=== PATIENT | male | born 1990 | race Caucasian/White ===

== ENCOUNTER 2018-04-13 19:40 | Emergency (ER) | payer OTHER ==
--- NOTE | 2018-04-13 20:02 | EDPHY ---
H & P Stated Complaint: fell down 5-6 stairs left elbow, hip, and knee pain Time Seen by Provider: 04/13/18 19:57 HPI/ROS: CHIEF COMPLAINT: Fall down stairs HISTORY OF PRESENT ILLNESS: 27-year-old male healthy works at [employer], was caring table clots, slipped on the stairs and slid down 5-6 stairs on his buttock. This occurred shortly prior to arrival. Complaining of left hand pain, left elbow pain, left hip and buttock pain left knee pain. Antalgic gait although he is able to bear weight albeit with pain. This is a mechanical non syncopal episode. Denies alcohol use. Denies head injury. Denies midline C- spine pain or injury. Denies lumbar thoracic pain or injury. Denies sacral pain or injury. Denies nausea or vomiting. Denies headache. PRIMARY CARE PROVIDER: Worker's compensation REVIEW OF SYSTEMS: A ten point review of systems was performed and is negative with the exception of the items mentioned in the HPI PAST MEDICAL/SURGICAL HISTORY: no anticoagulant use, no relevant medical/ surgical history SOCIAL HISTORY: denies alcohol use at time of incident PHYSICAL EXAM 1) GENERAL: Well-developed, well-nourished, alert and oriented. Observed ambulating with antalgic gait. Answering questions appropriately. 2) HEAD: Normocephalic, atraumatic 3) HEENT: Pupils equal, round, reactive to light bilaterally. Negative Horners. Nasopharynx, oropharynx, clear. No deformity or angulation of nose. No septal hematoma. No rhinorrhea. No oral trauma. Ears bilaterally with normal tympanic membranes. No hemotympanum. No fluid or blood in the external auditory canal. No raccoon eyes. No Leavitt sign. Teeth are normally aligned with no gross malocclusion, TMJ bilaterally nontender, facial bones nontender including the zygomatic arch, maxilla mandible. 4) NECK: No cervical collar is on. Posterior cervical spine is nontender, no stepoff, no effusion. Full range of motion which does not elicit any midline cervical spine pain, no posterior midline tenderness, no step-off. 5) LUNGS: Clear to auscultation bilaterally, no wheezes, no rhonchi, no retractions. No obvious signs of trauma. No chest wall pain. No flaring, no grunting. Moving symmetrically. No crepitus. 6) HEART: [Regular rate and rhythm, 7) ABDOMEN: No guarding, no rebound, no focal tenderness, no peritoneal signs, no signs of trauma, no ecchymosis 8) MUSCULOSKELETAL: Left upper extremity: Abrasion and pain to the dorsal left elbow with reproducible pain with palpation range of motion. No radial head pain. Abrasion and tenderness to palpation dorsal left hand at the base of the 3rd metacarpal. Wrist nontender. Remainder left upper extremity nontender. Soft compartments. Left lower extremity: No visible trauma, tender to palpation left buttock region. No shortening no malrotation. Tender to palpation left anterior knee with mild erythema noted. No gross instability. Otherwise no tenderness. Soft compartments. Otherwise, Moving all extremities, no focal areas of tenderness, no obvious trauma. 9) BACK: No midline vertebral tenderness, no fluctuance, no step-off, no obvious trauma, no visual or palpable abnormality. 10) SKIN: No laceration. DIFFERENTIAL DIAGNOSIS: In no particular order include but limited to fracture , sprain, strain, dislocation - Personal History Current Tetanus/Diphtheria Vaccine: Yes Current Tetanus Diphtheria and Acellular Pertussis (TDAP): Yes - Medical/Surgical History Hx Asthma: No Hx Chronic Respiratory Disease: No Hx Diabetes: No Hx Cardiac Disease: No Hx Renal Disease: No Hx Cirrhosis: No Hx Alcoholism: No Hx HIV/AIDS: No Hx Splenectomy or Spleen Trauma: No Other PMH: hernia - Social History Smoking Status: Never smoked Constitutional: Initial Vital Signs Temperature (C) 36.9 C 04/13/18 19:47 Heart Rate 73 04/13/18 19:47 Respiratory Rate 16 04/13/18 19:47 Blood Pressure 125/78 H 04/13/18 19:47 O2 Sat (%) 98 04/13/18 19:47 O2 Delivery Mode Room Air Allergies/Adverse Reactions: No Known Allergies Allergy (Unverified 04/13/18 19:49) Home Medications: Medication Instructions Recorded NK [No Known Home Meds] 04/13/18 Medical Decision Making - Diagnostics Imaging Results: Imaging Impressions Elbow X-Ray 04/13/18 20:02 Impression: No definite fracture or joint effusion of the left elbow. Hand X-Ray 04/13/18 20:02 Impression: 1. No definite acute fracture. 2. Consider additional imaging if symptoms persist, if clinically indicated. Hip X-Ray 04/13/18 20:02 Impression: 1. No evidence of left hip fracture or dislocation. 2. No significant degenerative changes. 3. Consider additional imaging with CT or MRI, if clinically indicated Knee X-Ray 04/13/18 20:02 Impression: No definite fracture or joint effusion of the left knee. Images reviewed myself Imaging: I viewed and interpreted images myself Procedures: Procedure: Splint A sling was applied by ER registered veterinary technician. After application of the splint I returned and re-examined the patient. The splint was adequately immobilizing the joint and distal to the splint the patient's circulation and sensation were intact. Patient shows no signs of compartment syndrome. Was given orthopedic precautions. ED Course/Re-evaluation: Care of patient under supervision of secondary supervising physician Dr Hamm . Re-evaluation with serial examinations. Discussed his imaging results showing no definitive acute osseous abnormality. He is neurovascularly intact with no evidence of compartment syndrome. Recommend close follow-up with orthopedics and work comp provider. Usual and customary orthopedic precautions and instructions provided. Departure - Departure Disposition: Home, Routine, Self-Care Clinical Impression: Left buttock pain Sprain of left hand Qualifiers: Encounter type: initial encounter Qualified Code(s): S63.92XA - Sprain of unspecified part of left wrist and hand, initial encounter Sprain of left elbow Qualifiers: Encounter type: initial encounter Qualified Code(s): S53.402A - Unspecified sprain of left elbow, initial encounter Fall down stairs Qualifiers: Encounter type: initial encounter Qualified Code(s): W10.8XXA - Fall (on) (from ) other stairs and steps, initial encounter Left knee sprain Qualifiers: Encounter type: initial encounter Involved ligament of knee: unspecified ligament Qualified Code(s): S83.92XA - Sprain of unspecified site of left knee, initial encounter Condition: Good Instructions: Knee Sprain (ED), Elbow Sprain (ED), Hand Sprain (ED) Additional Instructions: Return to the ER immediately if you experience discoloration, have worsening pain, numbness, tingling, or any other symptoms that concern you. If you received x-rays in the emergency department today, be advised, that ligamentous , tendon, muscular, and other non-bony injury cannot be fully ruled out. Try to keep your affected extremity elevated above the level of your chest, and keep cold packs on the affected area, for the next 48 hours. Referrals: Efrain Young MD [Medical Doctor] - As per Instructions Stand Alone Forms: Work Comp Follow Up
[2018-04-13 20:45] VITALS: BP 137/82
== END 2018-04-13 20:44 | disposition home or self-care (01) ==
DX: S63.92XA Sprain of unspecified part of left wrist and hand, initial encounter (principal); S53.402A Unspecified sprain of left elbow, initial encounter; S83.92XA Sprain of unspecified site of left knee, initial encounter; S39.92XA Unspecified injury of lower back, initial encounter; W10.9XXA Fall (on) (from) unspecified stairs and steps, initial encounter; Y92.511 Restaurant or cafe as the place of occurrence of the external cause; Y99.0 Civilian activity done for income or pay; Y93.89 Activity, other specified
CPT/HCPCS: A4565

== ENCOUNTER 2018-06-07 20:18 | Inpatient (IN) | payer OTHER ==
[2018-06-07] MEDS ORDERED: NS 1,000 ML IV ONE ×2 (21:06→21:18)
--- NOTE | 2018-06-07 21:10 | EDPHY ---
H & P Stated Complaint: Blood in Urine, Back Pain Time Seen by Provider: 06/07/18 21:10 HPI/ROS: HPI CHIEF COMPLAINT: Dysuria, hematuria, low-grade fever HISTORY OF PRESENT ILLNESS: 27-year-old male, presents emergency room with dysuria and hematuria. He states since Friday when he developed fever like illness he thought maybe he had upper respiratory/sinus infection. However he noticed some lower back pain dysuria and some hematuria. Decided come the emergency room for evaluation of this. Upon arrival to the emergency room he is afebrile. Nontoxic appearing. Main complaint dysuria. He denies any testicular pain, high flank pain, vomiting, high fever. He did not take his temperature at home. Denies productive cough, chest pain, abdominal pain. No diarrhea. Main complaint dysuria, hematuria, low-grade fever, low back pain. Denies STI exposure. Past Medical History: Denies medical history Past Surgical History: Denies surgical history Social History: Denies drugs alcohol tobacco. Family History: Noncontributory ROS REVIEW OF SYSTEMS: A comprehensive 10 point review of systems is otherwise negative aside from elements mentioned in the history of present illness. Exam Constitutional appears well nontoxic no acute distress, vital signs stable triage, triage nursing summary reviewed, vital signs reviewed, awake/alert. Eyes normal conjunctivae and sclera, EOMI, PERRLA. HENT normal inspection, atraumatic, moist mucus membranes, no epistaxis, neck supple/ no meningismus, no raccoon eyes. Respiratory clear to auscultation bilaterally, normal breath sounds, no respiratory distress, no wheezing. Cardiovascular rate normal, regular rhythm, no murmur, no edema, distal pulses normal. Gastrointestinal soft, non-tender, no rebound, no guarding, normal bowel sounds, no distension, no pulsatile mass. Genitourinary no CVA tenderness. Musculoskeletal no midline vertebral tenderness, full range of motion, no calf swelling, no tenderness of extremities, no meningismus, good pulses, neurovascularly intact. Skin pink, warm, & dry, no rash, skin atraumatic. Neurologic awake, alert and oriented x 3, AAOx3, moves all 4 extremities equally, motor intact, sensory intact, CN II-XII intact, normal cerebellar, normal vision, normal speech. Psychiatric normal mood/affect. Heme/Lymph/Immune no lymphadenopathy. Differential Diagnosis: Includes but is not limited to in a particular order, UTI, cystitis, pyelonephritis, proctitis, prostatitis, sepsis, bacteremia Medical Decision Making: Plan for this patient given complain of dysuria, hematuria, low back pain, low-grade fever will check basic blood work, IV hydration, check urinalysis. If urinalysis indicates UTI will treat with 1 g of Rocephin here in emergency room, urine culture, and re-evaluate. Re-evaluation: 2217: CT scan abdomen pelvis with IV contrast shows pyelonephritis. Patient here in emergency room is hemodynamically stable. I have ordered him IV Rocephin. 2 L of fluid. His elevated white count 21032. Lactic acid is not elevated. CT scan shows pyelo. Plan for admission hospital service overnight for observation for pyelonephritis. Spoke with Dr. Abdalla, agrees to admit the patient for pyelonephritis. Source: Patient - Personal History Current Tetanus Diphtheria and Acellular Pertussis (TDAP): Yes - Medical/Surgical History Hx Asthma: No Hx Chronic Respiratory Disease: No Hx Diabetes: No Hx Cardiac Disease: No Hx Renal Disease: No Hx Cirrhosis: No Hx Alcoholism: No Hx HIV/AIDS: No Hx Splenectomy or Spleen Trauma: No Other PMH: hernia - Social History Smoking Status: Never smoked Constitutional: Initial Vital Signs Temperature (C) 36.6 C 06/07/18 20:19 Heart Rate 77 06/07/18 20:19 Respiratory Rate 16 06/07/18 20:19 Blood Pressure 125/80 H 06/07/18 20:19 O2 Sat (%) 98 06/07/18 20:19 O2 Delivery Mode Room Air Allergies/Adverse Reactions: No Known Allergies Allergy (Unverified 04/13/18 19:49) Home Medications: Medication Instructions Recorded NK [No Known Home Meds] 04/13/18 Medical Decision Making - Data Points Laboratory Results: Laboratory Results 06/07/18 21:00 06/07/18 21:00 06/07/18 06/07/18 06/07/18 21:26 21:00 21:00 WBC 20.31 10^3/uL H 10^3/uL (3.80-9.50) RBC 4.69 10^6/uL 10^6/uL (4.40-6.38) Hgb 14.9 g/dL g/dL (13.7-17.5) Hct 43.8 % % (40.0-51.0) MCV 93.4 fL fL (81.5-99.8) MCH 31.8 pg pg (27.9-34.1) MCHC 34.0 g/dL g/dL (32.4-36.7) RDW 12.7 % % (11.5-15.2) Plt Count 190 10^3/uL 10^3/uL (150-400) MPV 11.5 fL fL (8.7-11.7) Neut % (Auto) Not Reported Lymph % (Auto) Not Reported Braxton % (Auto) Not Reported Eos % (Auto) Not Reported Baso % (Auto) Not Reported Nucleat RBC Rel Count Not Reported Absolute Neuts (auto) Not Reported Absolute Lymphs (auto) Not Reported Absolute Monos (auto) Not Reported Absolute Eos (auto) Not Reported Absolute Basos (auto) Not Reported Absolute Nucleated RBC Not Reported Immature Gran % Not Reported Seg Neutrophils % 81.0 % % Band Neutrophils % 0 % % Lymphocytes % 10.0 % % Monocytes % 9.0 % % Eosinophils % 0 % % Basophils % 0 % % Metamyelocytes % 0 % % Myelocytes % 0 % % Promyelocytes % 0 % % Blast Cells % 0 % % Immature Gran # Not Reported Absolute Seg Neuts 16.45 10^/uL H 10^/uL (1.70-6.50) Absolute Band Neuts 0.00 10^3/uL 10^3/uL (0.00-0.70) Absolute Lymphocytes 2.03 10^3/uL 10^3/uL (1.00-3.00) Absolute Monocytes 1.83 10^3/uL H 10^3/uL (0.30-0.80) Absolute Eosinophils 0.00 10^3/uL L 10^3/uL (0.03-0.40) Absolute Basophils 0.00 10^3/uL L 10^3/uL (0.02-0.10) Absolute Metamyelocyte 0.00 10^3/mL 10^3/mL (0.00-0.00) Absolute Myelocytes 0.00 10^3/mL 10^3/mL (0.00-0.00) Absolute Promyelocytes 0.00 10^3/uL 10^3/uL (0.00-0.00) Absolute Plasma Cells 0.00 10^3/uL 10^3/uL (0.00-0.00) Nucleated RBCs 0 /100 WBC /100 WBC (0-0) Absolute Blast Cells 0.00 10^3/uL 10^3/uL (0.00-0.00) Plasma Cells % 0 % % Platelet Estimate ADEQUATE (ADEQ) Polychromasia 1+ H Smear Review By Pending VBG Lactic Acid 1.0 mmol/L mmol/L (0.7-2.1) Sodium 140 mEq/L mEq/L (135-145) Potassium 4.0 mEq/L mEq/L (3.3-5.0) Chloride 103 mEq/L mEq/L (97-110) Carbon Dioxide 30 mEq/l mEq/l (22-31) Anion Gap 7 mEq/L L mEq/L (8-16) BUN 15 mg/dL mg/dL (7-23) Creatinine 0.7 mg/dL mg/dL (0.7-1.3) Estimated GFR > 60 Glucose 104 mg/dL H mg/dL (70-100) Calcium 9.5 mg/dL mg/dL (8.5-10.4) Urine Color Urine Appearance Urine pH Ur Specific Java Urine Protein Urine Ketones Urine Blood Urine Nitrate Urine Bilirubin Urine Urobilinogen Ur Leukocyte Esterase Urine RBC Urine WBC Ur Epithelial Cells Urine Bacteria Urine Mucus Urine Glucose Urine Opiates Screen Urine Barbiturates Ur Phencyclidine Scrn Ur Amphetamine Screen U Benzodiazepines Scrn Urine Cocaine Screen U Marijuana (THC) Screen 06/07/18 06/07/18 20:35 20:35 WBC RBC Hgb Hct MCV MCH MCHC RDW Plt Count MPV Neut % (Auto) Lymph % (Auto) Braxton % (Auto) Eos % (Auto) Baso % (Auto) Nucleat RBC Rel Count Absolute Neuts (auto) Absolute Lymphs (auto) Absolute Monos (auto) Absolute Eos (auto) Absolute Basos (auto) Absolute Nucleated RBC Immature Gran % Seg Neutrophils % Band Neutrophils % Lymphocytes % Monocytes % Eosinophils % Basophils % Metamyelocytes % Myelocytes % Promyelocytes % Blast Cells % Immature Gran # Absolute Seg Neuts Absolute Band Neuts Absolute Lymphocytes Absolute Monocytes Absolute Eosinophils Absolute Basophils Absolute Metamyelocyte Absolute Myelocytes Absolute Promyelocytes Absolute Plasma Cells Nucleated RBCs Absolute Blast Cells Plasma Cells % Platelet Estimate Polychromasia Smear Review By VBG Lactic Acid Sodium Potassium Chloride Carbon Dioxide Anion Gap BUN Creatinine Estimated GFR Glucose Calcium Urine Color YELLOW Urine Appearance MODERATELY TURBID Urine pH 6.0 (5.0-7.5) Ur Specific Java 1.019 (1.002-1.030) Urine Protein NEGATIVE (NEGATIVE) Urine Ketones NEGATIVE (NEGATIVE) Urine Blood 3+ H (NEGATIVE) Urine Nitrate NEGATIVE (NEGATIVE) Urine Bilirubin NEGATIVE (NEGATIVE) Urine Urobilinogen 4.0 EU H EU (0.2-1.0) Ur Leukocyte Esterase 3+ H (NEGATIVE) Urine RBC 50-182 /hpf H /hpf (0-3) Urine WBC 50-182 /hpf H /hpf (0-3) Ur Epithelial Cells NONE SEEN /lpf /lpf (NONE-1+) Urine Bacteria 4+ /hpf H /hpf (NONE SEEN) Urine Mucus TRACE /lpf /lpf (NONE-1+) Urine Glucose NEGATIVE (NEGATIVE) Urine Opiates Screen NEGATIVE (NEGATIVE) Urine Barbiturates NEGATIVE (NEGATIVE) Ur Phencyclidine Scrn NEGATIVE (NEGATIVE) Ur Amphetamine Screen NEGATIVE (NEGATIVE) U Benzodiazepines Scrn NEGATIVE (NEGATIVE) Urine Cocaine Screen NEGATIVE (NEGATIVE) U Marijuana (THC) Screen NON-NEGATIVE H (NEGATIVE) Medications Given: Discontinued Medications Sodium Chloride (Ns) 1,000 mls @ 0 mls/hr IV ONCE ONE; Wide Open PRN Reason: Protocol Stop: 06/07/18 21:07 Last Admin: 06/07/18 21:07 Dose: 1,000 mls Ceftriaxone Sodium/Dextrose (Rocephin 1 Gm (Premix)) 50 mls @ 100 mls/hr IV EDNOW ONE PRN Reason: Protocol Stop: 06/07/18 21:43 Last Admin: 06/07/18 21:24 Dose: 50 mls Sodium Chloride (Ns) 1,000 mls @ 0 mls/hr IV ONCE ONE PRN Reason: Wide Open Stop: 06/07/18 21:19 Last Admin: 06/07/18 21:25 Dose: 1,000 mls Departure - Departure Disposition: Home, Routine, Self-Care Clinical Impression: Pyelonephritis UTI (urinary tract infection) Qualifiers: Urinary tract infection type: acute cystitis Hematuria presence: with hematuria Qualified Code(s): N30.01 - Acute cystitis with hematuria Condition: Good Instructions: Urinary Tract Infection in Women (ED) Referrals: NONE *PRIMARY CARE P,. [Primary Care Provider] - As per Instructions
[2018-06-07 21:15] LABS: PLATELET COUNT 190 10^3/uL (150-400)
[2018-06-07] MEDS ORDERED: IOPAMIDOL (ISOVUE-300) 100 ML BTL ONE (21:24)
[2018-06-07] MEDS ORDERED: ONDANSETRON DISINTEGRATING 4 MG TAB PO PRN (23:06)
[2018-06-07] MEDS ORDERED: ONDANSETRON 4 MG/2 ML VIAL IVP PRN (23:06)
[2018-06-07] MEDS ORDERED: ACETAMINOPHEN 325 MG TAB PO PRN (23:06)
--- NOTE | 2018-06-08 02:45 | PDGENHP ---
History and Physical - Chief Complaint Hematuria - History of Present Illness 27 yo M w/ hx of depression presents with hematuria. He tells me he started to feel poorly 2 days prior to admission, mostly with fatigue and headache. Then, on the day of admission, he began to experience dysuria, bilateral flank pain, and hematuria. He denies fever and chills. He came in to the ED for evaluation where a UA revealed a urinary tract infection. He denies any prior history of urinary tract infections. He does get yearly sinus infections. He denies any form of immunodeficiency. He does tell me he has sex with other males but has not been sexually active the last few years. He has never been screened for STI' s. Of note, he has lost about 30 lbs in the last 9 months since moving to [place]. He states he cannot keep weight on despite eating what he thinks is a normal diet. Once admitted a depression screening was found to be positive. Upon further discussion he tells me he has been dealing with severe depression for several years. He was previously tried SSRI's and TCAs without good effect. He denies SI currently, but admits that he has had suicidal ideation recently, including a plan 2 weeks ago to step in front of traffic. He did not go through with this plan but is clearly decompensated from a depression standpoint. History Information - Allergies/Home Medication List Allergies/Adverse Reactions: No Known Allergies Allergy (Unverified 04/13/18 19:49) Home Medications: NK [No Known Home Meds] 04/13/18 [Last Taken Unknown] I have personally reviewed and updated: family history, medical history - Past Medical History Additional medical history: Depression - Surgical History Reports: no pertinent surgical hx - Family History Additional family history: Denies family hx of immunodeficiency - Social History Smoking Status: Never smoked Review of Systems Review of Systems: ROS: 10pt was reviewed & negative except for what was stated in HPI & below Physical Exam Physical Exam: Temp Pulse Resp BP Pulse Ox 36.8 C 73 18 120/78 98 06/07/18 23:55 06/07/18 23:57 06/07/18 23:57 06/07/18 23:57 06/07/18 23:57 Constitutional: no apparent distress, not in pain Eyes: PERRL, EOMI Ears, Nose, Mouth, Throat: moist mucous membranes, no oral mucosal ulcers Cardiovascular: regular rate and rhythym, no murmur, rub, or gallop Respiratory: no respiratory distress, clear to auscultation Gastrointestinal: normoactive bowel sounds, soft, non-tender abdomen Genitourinary: no bladder fullness, other (+ b/l CVAT) Skin: warm, normal color Musculoskeletal: full muscle strength, no muscle tenderness Neurologic: AAOx3, CN II-XII Intact Psychiatric: interacting appropriately, depressed Lab Data & Imaging Review 06/07/18 21:00 06/07/18 21:00 WBC 20.31 10^3/uL (3.80-9.50) H 06/07/18 21:00 RBC 4.69 10^6/uL (4.40-6.38) 06/07/18 21:00 Hgb 14.9 g/dL (13.7-17.5) 06/07/18 21:00 Hct 43.8 % (40.0-51.0) 06/07/18 21:00 MCV 93.4 fL (81.5-99.8) 06/07/18 21:00 MCH 31.8 pg (27.9-34.1) 06/07/18 21:00 MCHC 34.0 g/dL (32.4-36.7) 06/07/18 21:00 RDW 12.7 % (11.5-15.2) 06/07/18 21:00 Plt Count 190 10^3/uL (150-400) 06/07/18 21:00 MPV 11.5 fL (8.7-11.7) 06/07/18 21:00 Neut % (Auto) Not Reported 06/07/18 21:00 Lymph % (Auto) Not Reported 06/07/18 21:00 [place] % (Auto) Not Reported 06/07/18 21:00 Eos % (Auto) Not Reported 06/07/18 21:00 Baso % (Auto) Not Reported 06/07/18 21:00 Nucleat RBC Rel Count Not Reported 06/07/18 21:00 Absolute Neuts (auto) Not Reported 06/07/18 21:00 Absolute Lymphs (auto) Not Reported 06/07/18 21:00 Absolute Monos (auto) Not Reported 06/07/18 21:00 Absolute Eos (auto) Not Reported 06/07/18 21:00 Absolute Basos (auto) Not Reported 06/07/18 21:00 Absolute Nucleated RBC Not Reported 06/07/18 21:00 Immature Gran % Not Reported 06/07/18 21:00 Seg Neutrophils % 81.0 % 06/07/18 21:00 Band Neutrophils % 0 % 06/07/18 21:00 Lymphocytes % 10.0 % 06/07/18 21:00 Monocytes % 9.0 % 06/07/18 21:00 Eosinophils % 0 % 06/07/18 21:00 Basophils % 0 % 06/07/18 21:00 Metamyelocytes % 0 % 06/07/18 21:00 Myelocytes % 0 % 06/07/18 21:00 Promyelocytes % 0 % 06/07/18 21:00 Blast Cells % 0 % 06/07/18 21:00 Immature Gran # Not Reported 06/07/18 21:00 Absolute Seg Neuts 16.45 10^/uL (1.70-6.50) H 06/07/18 21:00 Absolute Band Neuts 0.00 10^3/uL (0.00-0.70) 06/07/18 21:00 Absolute Lymphocytes 2.03 10^3/uL (1.00-3.00) 06/07/18 21:00 Absolute Monocytes 1.83 10^3/uL (0.30-0.80) H 06/07/18 21:00 Absolute Eosinophils 0.00 10^3/uL (0.03-0.40) L 06/07/18 21:00 Absolute Basophils 0.00 10^3/uL (0.02-0.10) L 06/07/18 21:00 Absolute Metamyelocyte 0.00 10^3/mL (0.00-0.00) 06/07/18 21:00 Absolute Myelocytes 0.00 10^3/mL (0.00-0.00) 06/07/18 21:00 Absolute Promyelocytes 0.00 10^3/uL (0.00-0.00) 06/07/18 21:00 Absolute Plasma Cells 0.00 10^3/uL (0.00-0.00) 06/07/18 21:00 Nucleated RBCs 0 /100 WBC (0-0) 06/07/18 21:00 Absolute Blast Cells 0.00 10^3/uL (0.00-0.00) 06/07/18 21:00 Plasma Cells % 0 % 06/07/18 21:00 Platelet Estimate ADEQUATE (ADEQ) 06/07/18 21:00 Polychromasia 1+ H 06/07/18 21:00 VBG Lactic Acid 1.0 mmol/L (0.7-2.1) 06/07/18 21:26 Sodium 140 mEq/L (135-145) 06/07/18 21:00 Potassium 4.0 mEq/L (3.3-5.0) 06/07/18 21:00 Chloride 103 mEq/L (97-110) 06/07/18 21:00 Carbon Dioxide 30 mEq/l (22-31) 06/07/18 21:00 Anion Gap 7 mEq/L (8-16) L 06/07/18 21:00 BUN 15 mg/dL (7-23) 06/07/18 21:00 Creatinine 0.7 mg/dL (0.7-1.3) 06/07/18 21:00 Estimated GFR > 60 06/07/18 21:00 Glucose 104 mg/dL (70-100) H 06/07/18 21:00 Calcium 9.5 mg/dL (8.5-10.4) 06/07/18 21:00 Urine Color YELLOW 06/07/18 20:35 Urine Appearance MODERATELY TURBID 06/07/18 20:35 Urine pH 6.0 (5.0-7.5) 06/07/18 20:35 Ur Specific Thompson 1.019 (1.002-1.030) 06/07/18 20:35 Urine Protein NEGATIVE (NEGATIVE) 06/07/18 20:35 Urine Ketones NEGATIVE (NEGATIVE) 06/07/18 20:35 Urine Blood 3+ (NEGATIVE) H 06/07/18 20:35 Urine Nitrate NEGATIVE (NEGATIVE) 06/07/18 20:35 Urine Bilirubin NEGATIVE (NEGATIVE) 06/07/18 20:35 Urine Urobilinogen 4.0 EU (0.2-1.0) H 06/07/18 20:35 Ur Leukocyte Esterase 3+ (NEGATIVE) H 06/07/18 20:35 Urine RBC 50-182 /hpf (0-3) H 06/07/18 20:35 Urine WBC 50-182 /hpf (0-3) H 06/07/18 20:35 Ur Epithelial Cells NONE SEEN /lpf (NONE-1+) 06/07/18 20:35 Urine Bacteria 4+ /hpf (NONE SEEN) H 06/07/18 20:35 Urine Mucus TRACE /lpf (NONE-1+) 06/07/18 20:35 Urine Glucose NEGATIVE (NEGATIVE) 06/07/18 20:35 Urine Opiates Screen NEGATIVE (NEGATIVE) 06/07/18 20:35 Urine Barbiturates NEGATIVE (NEGATIVE) 06/07/18 20:35 Ur Phencyclidine Scrn NEGATIVE (NEGATIVE) 06/07/18 20:35 Ur Amphetamine Screen NEGATIVE (NEGATIVE) 06/07/18 20:35 U Benzodiazepines Scrn NEGATIVE (NEGATIVE) 06/07/18 20:35 Urine Cocaine Screen NEGATIVE (NEGATIVE) 06/07/18 20:35 U Marijuana (THC) Screen NON-NEGATIVE (NEGATIVE) H 06/07/18 20:35 Assessment & Plan Assessment: 27 yo M w/ hx of depression presents with pyelonephritis. Plan: 1. Pyelonephritis - Pyelonephritis suspected based on urinary symptoms, bilateral flank pain, and significant WBC elevation. He is not exhibiting signs of sepsis physiology currently. He has no prior history of urinary tract infections and denies any form of immunodeficiency. - Admit for observation - CT to rule out complicating factors - Urine and blood cultures pending - CTX 1 g qD 2. Weight loss - Patient describes 30 lb weight loss over the last 9 months. Noting history of intercourse with males, STI's such as HIV are a possibility. Also, severe depression could be playing a role. - Will check HIV, Hep C 3. Depression - Hx of depression for several years with previous poor response to SSRI's and TCA's. He denies current suicidal ideation but has suffered from SI with a plan (step in front of traffic) as recently as 2 weeks ago. I discussed this at length with him tonight and he denies any imminent desire to harm himself. - TLC evaluation in the morning Diet - Regular Code - Full Ppx - Low risk, ambulate TID Dispo - Admit under observation status
[2018-06-08 05:29] LABS: PLATELET COUNT 179 10^3/uL (150-400)
[2018-06-08 06:55] LABS: HEPATITIS C ANTIBODY TOTAL NEGATIVE (NEGATIVE)
[2018-06-08] MEDS: MULTIVITAMINS 1 EACH TAB PO SCH (08:35)
--- NOTE | 2018-06-08 12:22 | HOSPPROG ---
Hospitalist Progress Note Assessment/Plan: 27 yo M w/ hx of depression presents with pyelonephritis. *Pyelonephritis - has ongoing flank pain, >left side, high wbc count - CT shows multifocal pyelonephritis - Urine and blood cultures pending - CTX initiated *Weight loss - Patient describes 30 lb weight loss over the last 9 months. - history of intercourse with males, STI's such as HIV are a possibility. Also, severe depression could be playing a role. - Hep C is negative - awaiting final result of HIV *Underweight w a BMI of 17 * Depression - Hx of depression for several years with previous poor response to SSRI's and TCA's. -He denies current suicidal ideation but has suffered from SI with a plan (step in front of traffic) as recently as 2 weeks ago. -TLC evaluation did not believe he was a harm to himself -concerned patient is so tearful during my evaluation, have asked Alejandra Gunn with to see him *Plan: patient is insured through [facility]. Spoke with the [facility] physician, Chantell Olguin ([phone]), ok to keep him here overnight until we get results of blood cultures and urine cultures. He hasn't made any appt w [facility] to get a PCP set up. Their general # is [phone]. I explained to the patient it is important for him to get close f/u. He needs to make an appt prior to dc. I have spend >40 minutes calling [facility], following up care with the patient. Also, wanted to check him for G & C, he said he has not been sexually active x 5 years. Subjective: Yovanny is tearful about staying in the hospital another midnight, says he didn't sleep well and the bed is uncomfortable. Objective: Vital Signs Temp Pulse Resp BP Pulse Ox 36.6 C 74 16 121/81 H 97 06/08/18 08:00 06/08/18 08:00 06/08/18 08:00 06/08/18 08:00 06/08/18 08:00 Laboratory Results 06/08/18 04:55 06/08/18 04:55 06/07/18 06/08/18 06/09/18 05:59 05:59 05:59 Intake Total 2700 450 Output Total 25 Balance 2700 425 - Physical Exam Constitutional: other (thin) Eyes: PERRL Ears, Nose, Mouth, Throat: hearing normal Cardiovascular: regular rate and rhythym Respiratory: no respiratory distress Gastrointestinal: normoactive bowel sounds, other (+flank pain on left side) Skin: warm, No normal color (pale) Musculoskeletal: no muscle tenderness Neurologic: AAOx3 Psychiatric: thought process linear, depressed ICD10 Worksheet Patient Problems: Problems Problem Status Onset Pyelonephritis Acute UTI (urinary tract infection) Acute
[2018-06-08] MEDS ORDERED: TEMAZEPAM 15 MG CAP PO PRN (13:08)
--- NOTE | 2018-06-08 13:50 | ASMTCMCOM ---
CM Note CM Note Notes: Pt in for pylonephritis, has history of depression. TLC eval note today indicates pt does not meet criteria for M1 hold. CM to provide pt mental health resources and pt ultimately has contact [facility] for contracted providers. No therapies ordered. Pt resides alone in apartment. CM to follow. Date Signed: 06/08/2018 01:49 PM Electronically Signed By:JACQUELIN Berumen
--- NOTE | 2018-06-08 15:45 | PDMN ---
Medical Necessity Medical necessity: M300 UTi- pyelonephritis- persistent ongoing flank pain elevated WBC, CT showing multifocal pyelonephritis, urine and blood cultures pending, pt with sig. wt loss over past 9 months, high risk pt., depression, req IV abx, further monitoring. status changed to INPT 06/08/18 @ 15:18
[2018-06-09 05:37] LABS: PLATELET COUNT 199 10^3/uL (150-400)
[2018-06-09 08:03] VITALS: BP 124/76
[2018-06-09] MEDS: MULTIVITAMINS 1 EACH TAB PO SCH (08:21)
--- NOTE | 2018-06-09 08:34 | HOSPPROG ---
Hospitalist Progress Note Assessment/Plan: 27 yo M w/ hx of depression presents with pyelonephritis. *Pyelonephritis -feeling much better - CT shows multifocal pyelonephritis - Urine cx shows e coli and blood cultures currently shows no growth - CTX initiated - dc home on 7 days of Levaquin *Weight loss - Patient describes 30 lb weight loss over the last 9 months. - history of intercourse with males, STI's such as HIV are a possibility. - Hep C is negative - awaiting final result of HIV (labs sent out to [facility]) *Possible HIV -lab still pending at [facility] -this is critical that this is followed up with for treatment to be started quickly -I have reviewed these findings w Yovanny and he will f/u *Underweight w a BMI of 17 * Depression - Hx of depression for several years with previous poor response to SSRI's and TCA's. -He denies current suicidal ideation but has suffered from SI with a plan (step in front of traffic) as recently as 2 weeks ago. -TLC evaluation did not believe he was a harm to himself -reviewed his care w Alejandra Gunn RN with , he likely has Bipolar 2 disorder and needs close f/u *Plan: spoke w [facility] about my concerns he may have HIV and needs f/u with his Bipolar Disorder. He can go to the [facility] on [address]. Patient is calling now for an appt prior to dc. Will give him a dose of Ceftriaxone prior to dc. He has an appt today at [facility] at 16:30 Subjective: Yovanny is feeling much better today, no complaints. Motivated to get help Objective: Vital Signs Temp Pulse Resp BP Pulse Ox 36.8 C 66 15 124/76 H 97 06/09/18 08:00 06/09/18 08:00 06/09/18 08:00 06/09/18 08:00 06/09/18 08:00 Laboratory Results 06/09/18 05:00 06/08/18 06/09/18 06/10/18 05:59 05:59 05:59 Intake Total 250 300 Output Total 450 Balance -200 300 - Physical Exam Constitutional: not in pain, other (thin) Eyes: PERRL Ears, Nose, Mouth, Throat: hearing normal Respiratory: no respiratory distress Skin: warm Musculoskeletal: full muscle strength Neurologic: AAOx3 Psychiatric: interacting appropriately ICD10 Worksheet Patient Problems: Problems Problem Status Onset Pyelonephritis Acute UTI (urinary tract infection) Acute
--- NOTE | 2018-06-09 12:57 | GDS ---
[f rep st] DISCHARGE SUMMARY DISCHARGE DIAGNOSES: 1. Pyelonephritis. 2. Weight loss. 3. Possible human immunodeficiency disease. 4. Underweight with a body mass index of 17. 5. History of depression, but also likely bipolar 2 disorder. HISTORY OF PRESENT ILLNESS: Briefly Yovanny Riddle is a 27-year-old male who presented to the emergency room with hematuria. He started feeling poorly 2 days prior to his admission with fatigue and headache. He experienced dysuria and bilateral flank pain. He denies any fever or chills. He had a urinalysis that noted he has a urinary tract infection. He also has lost 30 pounds over the last 9 months since coming to [place]. He cannot keep weight on despite eating. He also has been having complaints of severe depression. He has tried SSRIs and TCAs without good effect. During his stay, he was seen by Alejandra Gunn who believes that he likely has bipolar 2 disorder. I have spoken with [facility]. They will be sure to follow up in regard to multiple concerns with this young patient. HOSPITAL COURSE: 1. Pyelonephritis. A CT scan showed multiple focal pyelonephritis. His urine culture showed E coli and blood culture currently shows no growth. He was treated with ceftriaxone. I will discharge him home on 7 days of Levaquin. I reviewed with him the side effects of Levaquin. 2. Weight loss. He describes having a 30 pound weight loss over the last 9 months. He does have a history of intercourse with males. His hepatitis C is negative. I am waiting for his final result of HIV. His lab was sent out to [facility] to further evaluate. 3. Possible HIV. I explained to Yovanny that this is critical that he follows up with this and he will need treatment immediately if this is positive. He understands this. I also spoke with [facility]. They are aware of this. 4. Underweight. He has a BMI of 17. 5. Depression. I suspect he likely has bipolar 2 disorder. [facility] has a program for him to get behavioral health treatment. DISCHARGE CONDITION: Stable. Blood pressure is 124/76, heart rate 76, respiratory rate 15, O2 saturation on room air 97%, temp is 36.8 Celsius. MEDICATIONS AT DISCHARGE: Please see the EMR. DISCHARGE INSTRUCTIONS: 1. Further follow up with [facility] physician. He has an appointment today. 2. He needs to get further evaluation in regard to his depression and bipolar 2 disorder. 3. His human immunodeficiency disease is pending. It is still at the [facility]. The results of this will likely be available this evening or tomorrow. I explained to the patient that this needs to be followed up as soon as possible. 4. Take the Levaquin as prescribed. 5. If he develops fever, chills, worsening flank pain, to return to the ER. Greater than 30 minutes discharging and coordinating this patient's care. Copy requested to: [facility] /[id number]/MODL MTDD
--- NOTE | 2018-06-09 13:45 | ASMTLACE ---
LACE Length of stay for Answers: 2 days current admission Acuity / Level of Answers: Yes Care: Did the patient have an inpatient admission? # of Emergency department Answers: 1-2 visits in the last 6 months Social determinants Answers: Mental health diagnosis (anxiety, depression, pers onality disorders, etc.) Score: 9 Date Signed: 06/09/2018 01:44 PM Electronically Signed By:JACQUELIN Berumen
--- NOTE | 2018-06-09 13:47 | ASMTCMCOM ---
CM Note CM Note Notes: Pt medically stable for d/c. Alejandra Gunn met with pt and provided community mental health resources. Pt to follow up with [facility]. No CM d/c needs identified. Date Signed: 06/09/2018 01:46 PM Electronically Signed By:JACQUELIN Berumen
== END 2018-06-09 12:06 | disposition home or self-care (01) | DRG 690 ==
LOC: F3N 06-08 00:05 → OBSVTOIN 06-08 15:18
PROVIDERS: ADMIT Student in an Organized Health Care Education/Training Program; ATTEND Student in an Organized Health Care Education/Training Program
DX: N12 Tubulo-interstitial nephritis, not specified as acute or chronic (principal); B96.20 Unspecified Escherichia coli [E. coli] as the cause of diseases classified elsewhere; R63.6 Underweight; F31.81 Bipolar II disorder; Z68.1 Body mass index [BMI] 19.9 or less, adult
CPT/HCPCS: 80305; 96365; G0472; J0696; Q9967